=== PATIENT | female | born 1990 | race Caucasian/White ===

== ENCOUNTER → 2017-02-19 | Outpatient (CLI) | payer OTHER ==
[~2017-02-19] MED LIST: IBU800 M1 PO; PERCOCET 325 MG1 TA2 PO; PRENATAL MVI; ZYRTEC 10MG10 MG PO
== END ==
LOC: SUN.DIA 09:08
DX: O24.419 Gestational diabetes mellitus in pregnancy, unspecified control (principal); Z3A.31 31 weeks gestation of pregnancy; Z71.3 Dietary counseling and surveillance
CPT/HCPCS: G0108

== ENCOUNTER → 2017-02-27 | Outpatient (CLI) | payer OTHER | LOC: SUN.DIA 08:24 | DX: O24.419 Gestational diabetes mellitus in pregnancy, unspecified control (principal); Z3A.32 32 weeks gestation of pregnancy; Z71.3 Dietary counseling and surveillance | CPT/HCPCS: G0108 ==

== ENCOUNTER → 2017-03-25 | Outpatient (REF) | LOC: WSOH 08:00 | DX: Z02.89 Encounter for other administrative examinations (principal) ==

== ENCOUNTER 2017-03-30 06:40 | Inpatient (IN) | payer OTHER ==
[2017-03-30] VITALS (23 sets, daily range): BP systolic 89–139; BP diastolic 52–85; PULSE 68–146; TEMP 97.7–98.5
[~2017-03-30] VITALS: Ht 167.6 cm; Wt 98.2 kg
[2017-03-30] MEDS ORDERED: ZYRTEC 10MG10 MG PO (07:25)
[2017-03-30] MEDS ORDERED: PRENATAL MVI (07:25)
[2017-03-30 07:38] LABS: BASO # 0.1 (0.0-0.2); BASO % 0.5 % (0.0-2.0); EOS # 0.1 (0.0-0.7); EOS % 1.1 % (0-4.0); GRAN # 9.4 (1.4-6.5); HEMOGLOBIN 12.4 g/dl (12.5-16.0); LYMPH # 1.9 (1.2-3.4); LYMPH % 15.4 % (20.0-51.0); MEAN CELL VOLUME 89 fl (80.0-100.0); MEAN CORPUSCULAR HEMOGLOBIN 30 pg (27.0-31.0); MEAN CORPUSCULAR HGB CONC 34 g/dl (33.0-37.0); MEAN PLATELET VOLUME 11.3 fl (7.4-10.4); MONO # 0.7 (0.1-0.6); MONO % 5.7 % (1.7-9.3); PLATELET COUNT 173 K/mm3 (130-400); RED BLOOD COUNT 4.12 M/mm3 (4.10-5.30); REDCELL DISTRIBUTION WIDTH-CV 13.3 % (11.5-14.5); WHITE BLOOD COUNT 12.2 K/mm3 (4.8-10.8)
[2017-03-30 07:39] LABS: HEMATOCRIT 36.7 % (37.0-47.0)
[2017-03-31 02:55] VITALS: BP 120/80; PULSE 81; TEMP 98.1
[2017-03-31 07:34] VITALS: BP 109/63; PULSE 84; TEMP 98.3
[2017-03-31] MEDS ORDERED: PERCOCET 325 MG1 TA2 PO (10:26)
[2017-03-31] MEDS ORDERED: IBU800 M1 PO (10:26)
[2017-03-31 16:00] VITALS: BP 113/74; PULSE 87
[2017-03-31 20:30] VITALS: BP 108/68; PULSE 86; TEMP 97.2
[2017-04-01 08:30] VITALS: BP 111/76; PULSE 81; TEMP 98.1
== END 2017-04-01 13:05 | disposition home or self-care (01) | DRG 775 ==
LOC: LDRO 06:40 → LDR 07:00 → LDRO 07:47 → OB 13:30
PROVIDERS: Student in an Organized Health Care Education/Training Program
PROC: 10E0XZZ Delivery of Products of Conception, External Approach (ICD-10-PCS; principal; 2017-03-30)
PROC: 0KQM0ZZ Repair Perineum Muscle, Open Approach (ICD-10-PCS; 2017-03-30)
PROC: 0UQMXZZ Repair Vulva, External Approach (ICD-10-PCS; 2017-03-30)
DX: O60.13X0 Preterm labor second trimester with preterm delivery third trimester, not applicable or unspecified (principal); O24.420 Gestational diabetes mellitus in childbirth, diet controlled; O70.1 Second degree perineal laceration during delivery; O71.82 Other specified trauma to perineum and vulva; O43.193 Other malformation of placenta, third trimester; Z3A.36 36 weeks gestation of pregnancy; Z37.0 Single live birth
CPT/HCPCS: J2540; J2590; J2795; J7120

== ENCOUNTER → 2021-01-31 | Outpatient (CLI) | payer BC ==
[~2021-01-31] MED LIST changes: +IRON TABLETS325 MG PO; +MOTRIN 800800 MG/TAB PO; +PROAIR HFA0.09 MG/AC IH
== END ==
LOC: COL.RAD 11:37
DX: N20.0 Calculus of kidney (principal)

== ENCOUNTER → 2023-09-07 | Outpatient (CLI) | payer BC | LOC: MC.RAD 08:39 | DX: R92.8 Other abnormal and inconclusive findings on diagnostic imaging of breast (principal); Z84.81 Family history of carrier of genetic disease ==